=== PATIENT | male | born 1955 | race Caucasian/White ===

== ENCOUNTER 2017-01-21 13:26 | Inpatient (IN) | payer OTHER ==
[2017-01-21] MEDS ORDERED: NS 1,000 ML IV ONE (15:19)
--- NOTE | 2017-01-21 15:21 | EDPHY ---
H & P Time Seen by Provider: 01/21/17 15:07 HPI/ROS: CHIEF COMPLAINT: Diarrhea and weight loss HISTORY OF PRESENT ILLNESS: 61-year-old man has a history of ulcerative colitis presents with diarrhea for 6 days. No nausea vomiting or fever. He describes getting bad stomach cramps and then having diarrhea which completely relieved his abdominal pain this is happening about 20 times a day. He went to urgent care this past Tuesday morning with no definitive diagnosis. The patient did have a negative colonoscopy in November but he has had significant weight loss including 50 lb in the last 6 months, and 10 lb in the last week. No recent travel and no antibiotics. Stool has been a little bit bloody. Not associated with vomiting. REVIEW OF SYSTEMS: Eye: no change in vision ENT: no sore throat Cardiac: no chest pain or syncope Pulmonary: no cough or SOB Abdomen: HPI Musculoskeletal: no back pain Skin: no rash Neuro: no headache Constitutional: no fever : no urinary symptoms A comprehensive 10 point review of systems is otherwise negative aside from elements mentioned in the history of present illness. PAST MEDICAL HISTORY: Includes ulcerative colitis, type 2 diabetes, hyperlipidemia, prostatic hypertrophy, hemorrhoids, hand surgery, hemorrhoidectomy. Social history: No alcohol, former smoker General Appearance: Alert and conversant, cooperative. Eyes: No scleral icterus. ENT, Mouth: Dry mucous membranes Respiratory: Normal respiratory effort, breath sounds equal, lungs are clear to auscultation. Cardiovascular: Regular rate and rhythm. Gastrointestinal: Abdomen is soft and non tender. No rebound or guarding and bowel sounds are present. No masses palpated Neurological: Alert and oriented x3. Normally conversant. Face symmetric, normal movement and sensation in all extremities. Skin: Warm and dry, no rashes. Musculoskeletal: No peripheral edema and no joint swelling. Psychiatric: Not agitated. Emergency Department course/MDM: Patient presents clinically dehydrated with worsening ulcerative colitis and diarrhea with outpatient treatment. Notes from his primary care physician Dr. Forbes are reviewed which include recommendation for admission and gastroenterology consultation, consideration for steroids. Clostridium difficile came back positive hospitalist is aware and will start treatment. Seen by Gastroenterology in the emergency department for evaluation. IV normal saline for volume depletion. Smoking Status: Never smoked Constitutional: Initial Vital Signs Temperature (C) 36.8 C 01/21/17 13:44 Heart Rate 80 01/21/17 13:44 Respiratory Rate 18 01/21/17 13:44 Blood Pressure 151/74 H 01/21/17 13:44 O2 Sat (%) 96 01/21/17 13:44 O2 Delivery Mode Room Air Allergies/Adverse Reactions: No Known Allergies Allergy (Unverified 01/21/17 13:42) Home Medications: Medication Instructions Recorded Aspirin [Aspirin 81mg (*)] 81 mg PO DAILY 01/21/17 Balsalazide Disodium [Colazal (*)] 2,250 mg PO TID 01/21/17 Canagliflozin/Metformin HCl 1 each PO BIDMEAL 01/21/17 [Invokamet 150-1,000 mg Tablet] Colesevelam HCl [Welchol (*)] 1,250 mg PO BID@,01/21/17 L.acidoph,Paracasei, B.lactis 1 each PO DAILY 01/21/17 [Probiotic] Mesalamine [Canasa Suppository (*)] 1,000 mg IA DAILY PRN 01/21/17 Multivitamins [Multivitamin (*)] 1 each PO DAILY 01/21/17 Simvastatin 40 mg PO HS 01/21/17 Medical Decision Making Differential Diagnosis: Differential considered including but not limited to infectious colitis, ischemic colitis, infectious diarrhea, ulcerative colitis. Does have dehydration. Consult/Admit Bed Type: [place] [id number], [place] [id number] - Data Points Laboratory Results: Laboratory Results 01/21/17 15:10 01/21/17 15:10 01/21/17 01/21/17 15:10 15:10 WBC 9.29 10^3/uL 10^3/uL (3.80-9.50) RBC 5.01 10^6/uL 10^6/uL (4.40-6.38) Hgb 15.7 g/dL g/dL (13.7-17.5) Hct 45.8 % % (40.0-51.0) MCV 91.4 fL fL (81.5-99.8) MCH 31.3 pg pg (27.9-34.1) MCHC 34.3 g/dL g/dL (32.4-36.7) RDW 12.4 % % (11.5-15.2) Plt Count 281 10^3/uL 10^3/uL (150-400) MPV 8.8 fL fL (8.7-11.7) Neut % (Auto) 72.1 % % (39.3-74.2) Lymph % (Auto) 13.8 % L % (15.0-45.0) Dickson % (Auto) 10.1 % % (4.5-13.0) Eos % (Auto) 3.1 % % (0.6-7.6) Baso % (Auto) 0.5 % % (0.3-1.7) Nucleat RBC Rel Count 0.0 % % (0.0-0.2) Absolute Neuts (auto) 6.69 10^3/uL H 10^3/uL (1.70-6.50) Absolute Lymphs (auto) 1.28 10^3/uL 10^3/uL (1.00-3.00) Absolute Monos (auto) 0.94 10^3/uL H 10^3/uL (0.30-0.80) Absolute Eos (auto) 0.29 10^3/uL 10^3/uL (0.03-0.40) Absolute Basos (auto) 0.05 10^3/uL 10^3/uL (0.02-0.10) Absolute Nucleated RBC 0.00 10^3/uL 10^3/uL (0-0.01) Immature Gran % 0.4 % % (0.0-1.1) Immature Gran # 0.04 10^3/uL 10^3/uL (0.00-0.10) Sodium 140 mEq/L mEq/L (134-144) Potassium 3.7 mEq/L mEq/L (3.5-5.2) Chloride 107 mEq/L mEq/L (97-110) Carbon Dioxide 24 mEq/l mEq/l (22-31) Anion Gap 9 mEq/L mEq/L (8-16) BUN 11 mg/dL mg/dL (7-23) Creatinine 0.8 mg/dL mg/dL (0.7-1.3) Estimated GFR > 60 Glucose 96 mg/dL mg/dL (70-100) Calcium 8.8 mg/dL mg/dL (8.5-10.4) Total Bilirubin 0.6 mg/dL mg/dL (0.1-1.4) Conjugated Bilirubin 0.3 mg/dL mg/dL (0.0-0.5) Unconjugated Bilirubin 0.3 mg/dL mg/dL (0.0-1.1) AST 27 IU/L IU/L (17-59) ALT 30 IU/L IU/L (21-72) Alkaline Phosphatase 50 IU/L IU/L (38-126) Total Protein 6.0 g/dL L g/dL (6.3-8.2) Albumin 3.6 g/dL g/dL (3.5-5.0) Lipase 66.0 IU/L IU/L (23-300) Microbiology Results: MICROBIOLOGY 01/21/17 15:30 Stool Gastrointestinal Tract Panel (PCR) - Final Clostridium Difficile Detected Medications Given: Discontinued Medications Sodium Chloride (Ns) 1,000 mls @ 0 mls/hr IV EDNOW ONE; Wide Open PRN Reason: Protocol Stop: 01/21/17 15:20 Last Admin: 01/21/17 15:21 Dose: 1,000 mls Departure - Departure Disposition: [facility] Inpatient Acute Clinical Impression: Dehydration Diarrhea Qualifiers: Diarrhea type: unspecified type Qualified Code(s): R19.7 - Diarrhea, unspecified Condition: Good
[2017-01-21 15:24] LABS: % IMMATURE GRANULYOCYTES 0.4 % (0.0-1.1); ABSOLUTE IMMATURE GRANULOCYTES 0.04 10^3/uL (0.00-0.10); ADD DIFF? NO; ADD MORPH? NO; ADD SCAN? NO; ATYPICAL LYMPHOCYTE FLAG 10 (0-99); FRAGMENT RBC FLAG 0 (0-99); HEMATOCRIT 45.8 % (40.0-51.0); HEMOGLOBIN 15.7 g/dL (13.7-17.5); LEFT SHIFT FLG 0 (0-99); LIPEMIA HEMOLYSIS FLAG 90 (0-99); MEAN CELL HEMOGLOBIN 31.3 pg (27.9-34.1); MEAN CELL HEMOGLOBIN CONCENTR. 34.3 g/dL (32.4-36.7); MEAN CELL VOLUME 91.4 fL (81.5-99.8); MEAN PLATELET VOLUME 8.8 fL (8.7-11.7); PLATELET CLUMPS FLAG 0 (0-99); PLATELET COUNT 281 10^3/uL (150-400); RED BLOOD CELL COUNT 5.01 10^6/uL (4.40-6.38); RED CELL DISTRIBUTION WIDTH 12.4 % (11.5-15.2)
[2017-01-21 15:36] LABS: ALANINE AMINOTRANSFERASE 30 IU/L (21-72); ALBUMIN 3.6 g/dL (3.5-5.0); ALKALINE PHOSPHATASE 50 IU/L (38-126); ANION GAP 9 mEq/L (8-16); ASPARTATE AMINOTRANSFERASE 27 IU/L (17-59); BILIRUBIN,TOTAL 0.6 mg/dL (0.1-1.4); BILIRUBIN-CONJUGATED 0.3 mg/dL (0.0-0.5); BILIRUBIN-UNCONJUGATED 0.3 mg/dL (0.0-1.1); CALCIUM 8.8 mg/dL (8.5-10.4); CARBON DIOXIDE 24 mEq/l (22-31); CHLORIDE 107 mEq/L (97-110); CREATININE 0.8 mg/dL (0.7-1.3); GLOMERULAR FILTRATION RATE > 60; GLUCOSE 96 mg/dL (70-100); POTASSIUM 3.7 mEq/L (3.5-5.2); SODIUM 140 mEq/L (134-144)
[2017-01-21] MEDS ORDERED: ONDANSETRON DISINTEGRATING 4 MG TAB PO PRN (16:56)
[2017-01-21] MEDS ORDERED: HYDROmorphONE/DILAUDID 1 MG/ML SYR IVP PRN (16:56)
[2017-01-21] MEDS ORDERED: PROMETHAZINE HCL 25 MG/ML INJ IVP PRN (16:56)
[2017-01-21] MEDS ORDERED: ONDANSETRON 4 MG/2 ML VIAL IVP PRN (16:56)
[2017-01-21] MEDS ORDERED: oxyCODONE IR 5 MG TAB PO PRN (16:56)
[2017-01-21] MEDS ORDERED: LORazepam 0.5 MG TAB PO PRN (16:56)
[2017-01-21] MEDS ORDERED: ZOLPIDEM TARTRATE 5 MG TAB PO PRN (16:56)
[2017-01-21] MEDS ORDERED: ACETAMINOPHEN 325 MG TAB PO PRN (16:56)
[2017-01-21] MEDS ORDERED: MESALAMINE 1,000 MG SUPP PR PRN (16:59)
[2017-01-21] MEDS ORDERED: D50W 25 GM/50 ML SYR IVP PRN (17:00)
--- NOTE | 2017-01-21 17:14 | GCON ---
[f rep st] CONSULTATION DATE OF CONSULTATION: 01/21/2017 REQUESTING PROVIDER: Devi Donis MD REASON FOR CONSULTATION: Diarrhea and weight loss. Thank you very kindly for asking me to evaluate this patient in consultation for a chief complaint o f diarrhea. HISTORY OF PRESENTING ILLNESS: The patient is a pleasant 61-year-old gentleman with underlying ulce rative colitis that has been previously treated by Dr. Stas Ho. He has been on Colazal 3 ca psules 3 times daily for maintenance of his disease, and has been in good remission. He has been ex periencing a significant amount of unexplained weight loss for the last several months. As part of this, he had a repeat colonoscopy in November performed by Dr. Ho that he says to me was unremarkabl e. I have not seen that formal report. Six days ago, he began to develop uncontrollable urgent laura rrhea with hematochezia. This seems to begin with periumbilical abdominal pain and cramping, follow ed by profuse sweating, and then multiple frequent small to moderate volume, loose, explosive bowel movements with blood. He says that the abdominal discomfort and urgency associated with the diarrhe a is not typical for his colitis. He denies any recent antibiotic use, foreign travel or sick conta cts. His reports eating the same type of diet, and she has not been ill. The patient has also undergone a CT scan of the chest, abdomen and pelvis, it sounds like up through [place], as an evaluation for weight loss that he says he was told was nondiagnostic but again, I have not seen this imaging. He denies any fever. He is having nocturnal diarrhea. He denies any r reny or joint pain. He has not initiated any new medications. I am asked to assist with further mona luation and management of his abdominal pain, weight loss, diarrhea, and ulcerative colitis. PAST MEDICAL HISTORY: 1. Type 2 diabetes. 2. Hyperlipidemia. 3. Granados ulcerative colitis. PAST SURGICAL HISTORY: None. MEDICATIONS: On admission include Invokana for diabetes, Welchol and Colazal. ALLERGIES: None known. SOCIAL HISTORY: The patient is . He lives in [place]. He does work for the [employer] (formerly [employer] in [employer]. He has a remote 20 pack-year tobacco history, nothing recent. No alcoholism, no substance abuse. FAMILY HISTORY: Significant for colon cancer in a cousin. There is no history of inflammatory duane l disease or celiac illness. REVIEW OF SYSTEMS: CONSTITUTIONAL: Diaphoresis, weight loss. He says his appetite is good. HEENT : Denies headache, visual disturbances, sore throat, tongue pain, odynophagia or difficulty swallow ing. GI: Denies nausea, vomiting, chest pain, heartburn or dysphagia. Otherwise, per the HPI. RH EUMATOLOGIC: No joint pain or swelling. DERMATOLOGIC: No jaundice, rash or lesion. HEMATOLOGIC: No bruising or epistaxis. GENITOURINARY: No flank pain, hematuria or dysuria. PSYCHIATRIC: Sourav es depression, insomnia, anxiety or palpitations. NEUROLOGIC: No focal motor weakness or paresthes ias. No falls or seizure. PHYSICAL EXAM: VITAL SIGNS: Blood pressure 151/74, heart rate is 80, respirations are 18, oxygenat ion is 96% on room air. Temperature 36.8. GENERAL: Thin male in no acute distress. BMI is 24, wi th a body weight of 77 kg. HEENT: Normocephalic, atraumatic. Oropharynx clear. No thrush, no ora l lesion. NECK: Supple. No jugular venous distention or carotid bruit. No cervical or supraclavi cular adenopathy. PULMONARY: Clear to auscultation bilaterally. CARDIOVASCULAR: Regular rate and rhythm without murmur, rub, or gallop. Normal PMI. GI: Abdomen is soft and nondistended. Normal bowel sounds. No tenderness, rebound, guarding, ascites, organomegaly or bruit. MUSCULOSKELETAL: Normal gait and station. No cyanosis, no clubbing. No joint deformity. No palmar erythema. DERM ATOLOGIC: Warm and dry without jaundice, rash or lesion. Capillary refill is normal. NEUROLOGIC: Alert to person, place, and time. Normal speech and affect. Appropriate mood. Motor exam is nonf ocal and symmetric with good strength. DATABASE: Includes white blood count 9.2, hematocrit 45.8, platelets are 281. Sodium 140, potassiu m 3.7, chloride 107, bicarbonate 24, BUN 11, creatinine 0.8, glucose 96, AST 27, ALT 30, total bilir ubin 0.6, alkaline phosphatase 50, lipase 66. Albumin 3.6, total protein 6.0. IMPRESSION: 1. Diarrhea. 2. Abdominal pain, predominantly periumbilical and lower pelvic. 3. Weight loss of close to 25 pounds in the last several months that has been unexplained. 4. Hematochezia. RECOMMENDATIONS: 1. Obtain the results of his CT scan of his chest, abdomen and pelvis, which sounds like they were performed through the [facility], or possibly [facility]. 2. Obtain the results of his last colonoscopy with biopsies from Dr. Ho's office. 3. Stool for culture and C difficile. 4. Upper endoscopy to evaluate his weight loss and diarrhea, with the plan to also obtain small bow el biopsies. 5. Flexible sigmoidoscopy to assess the severity and extent of his colitis with the plan to also ob tain random biopsies. 6. IV Solu-Medrol 30 mg IV q.6 for treatment of the presumed diagnosis of an ulcerative colitis fla re. 7. I would not continue Invokana as this has often been associated with GI side effects, weight los s, diarrhea and pain. 8. In the same regard, I would not continue WelChol, given his substantial weight loss. 9. He will not need Colazal in the short term, given the use of Solu-Medrol to treat his colitis. 10. Further recommendations to follow his endoscopic evaluation. He may have a normal diet today w ith n.p.o. after midnight. /[id number]/MODL
[2017-01-21] MEDS: INSULIN LISPRO 100 UNIT/ML SC SCH (18:40)
[2017-01-21] MEDS: NS 1,000 ML IV SCH (19:03)
--- NOTE | 2017-01-21 20:56 | GHP ---
[f rep st] HISTORY AND PHYSICAL DATE OF ADMISSION: 01/21/2017 CHIEF COMPLAINT: Diarrhea and weight loss. HISTORY: This is a 61-year-old man who has a past medical history of ulcerative colitis followed pr eviously by Dr. Ho as well as a history of type 2 diabetes. The patient comes to the hospital c omplaining of 6 days of nonstop diarrhea. He notes essentially everything he eats comes out fairly immediately. He says he has had about 20 bowel movements per day. He notes that bowel movements dave ve been yellow in appearance, explosive, and floating in the toilet. He has also noticed some blood in the stool. He notes he has never had a similar bout like this in the past, and it is not typica l for his usual bouts of UC flare. He also has had unexplained weight loss for about the last 6 mon ths. He states he has lost more than 50 pounds. He did have a CT scan of his chest about 6 months ago to look for an occult malignancy given that he has a long smoking history, but this was unremark able as far as he knows. He did have a recent colonoscopy by Dr. Ho which did not show any colo n cancer. He has also had some night sweats which he describes as occasionally waking up soaking th e bed. He notes that prior to 6 days ago he was not having issues with diarrhea, but it is his usua l pattern to have about 4 small bowel movements per day. He has had no new medications. He notes h is diabetes has been under better control than usual recently. PAST MEDICAL HISTORY: 1. Ulcerative colitis. 2. Type 2 diabetes. 3. Hyperlipidemia. PAST SURGICAL HISTORY: None. SOCIAL HISTORY: Patient is . He has a 20 pack-year smoking history. He denies heavy alcoho l use. He works in construction. FAMILY HISTORY: He notes 2 cousins with colon cancer. Otherwise, no cancers or GI issues in the [facility]. MEDICATIONS: 1. Colazal. 2. Aspirin. 3. Mesalamine. 4. Invokamet. 5. Multivitamin. 6. Simvastatin. 7. Probiotic. 8. Welchol. ALLERGIES: No known drug allergies. PHYSICAL EXAMINATION: VITAL SIGNS: BP 117/67, heart rate 71, respiratory rate 16, O2 sats 97% on r oom air, temperature is 36.5. GENERAL APPEARANCE: Well-developed/well-nourished man. He is awake and alert. He is in no acute distress. EYES: Anicteric. HENT: Oropharynx clear. CARDIOVASCULAR : Regular rate and rhythm, no MRG. PULMONARY: CTA bilaterally. Normal work of breathing. ABDOME N: Soft, nontender, nondistended. EXTREMITIES: No clubbing, cyanosis, or edema. SKIN: Warm, dry , well perfused. NEURO/PSYCHOLOGICAL: Oriented, appropriate, and pleasant. CLINICAL DATA: CBC is unremarkable. Chemistry and LFTs are essentially unremarkable. Most recent hemoglobin A1c was 8.8. C difficile toxin was found on initial GI report. ASSESSMENT AND PLAN: This is a 61-year-old man past medical history of ulcerative colitis presentin with 6 days of significant diarrhea and 6 months of significant weight loss. 1. Diarrhea with a history of ulcerative colitis but also Clostridium difficile screen coming back positive on his GI PCR panel. GI has been consulted and plans to proceed with upper endoscopy and f lexible sigmoidoscopy in the morning. The remainder of the microbiology on his GI pathogen panel is still pending. 2. Clostridium difficile colitis. Will start oral vancomycin. Otherwise, workup is as per above. 3. Weight loss. Patient has had a 50-pound weight loss over 6 months, and both he and his are adamant that he has been eating very well, not trying to lose weight. It is associated with night sweats. Does sound like he had imaging of his chest about 6 months ago, but given ongoing and worse abdirahman issues, I am going to repeat a CT chest, abdomen, pelvis. Will also get a TSH and LDH level. 4. Ulcerative colitis. Pending his flexible sigmoidoscopy to be done in the morning, I will contin ue IV steroids for the time being as his diarrhea may have both components of Clostridium difficile and ulcerative colitis flare. If there is no evidence of ulcerative colitis flare on his flexible s igmoidoscopy, the steroids likely can be discontinued. Will continue with usual home ulcerative col itis medications. 5. Diabetes. We will hold his Invokamet per Dr. Ace's request as it can cause some GI symptoms. Will continue sliding scale insulin for time being. 6. Hyperlipidemia. Will hold the Welchol again in case this could be contributing to his acute pre sentation. Will continue simvastatin. 7. Disposition: Inpatient status. Except he will need greater than 48 hour stay for evaluation an d management of above. Patient is new to my care. Old records reviewed. Summary is as per HPI and past medical history. Care plan reviewed with Dr. Ace including plans for Solu-Medrol and [facility] Further history obtained from patient's present at bedside. /[id number]/MODL
[2017-01-21] MEDS: VANCOMYCIN 125 MG/2.5 ML UDL PO SCH (20:58)
[2017-01-21] MEDS: ATORVASTATIN CALCIUM 20 MG TAB PO SCH (20:58)
[2017-01-21] MEDS ORDERED: IOPAMIDOL (ISOVUE-300) 100 ML BTL ONE (21:37)
[2017-01-21] MEDS: methylPREDNISolone SOD SUCC 40 MG/ML VIAL IVP SCH (23:38)
[2017-01-21] MEDS: BALSALAZIDE DISODIUM 750 MG CAP PO SCH (23:38)
[2017-01-22 05:14] LABS: % IMMATURE GRANULYOCYTES 0.6 % (0.0-1.1); ABSOLUTE IMMATURE GRANULOCYTES 0.06 10^3/uL (0.00-0.10); ADD DIFF? NO; ADD MORPH? NO; ADD SCAN? NO; ATYPICAL LYMPHOCYTE FLAG 0 (0-99); FRAGMENT RBC FLAG 0 (0-99); HEMATOCRIT 43.9 % (40.0-51.0); HEMOGLOBIN 14.8 g/dL (13.7-17.5); LEFT SHIFT FLG 30 (0-99); LIPEMIA HEMOLYSIS FLAG 80 (0-99); MEAN CELL HEMOGLOBIN 31.1 pg (27.9-34.1); MEAN CELL HEMOGLOBIN CONCENTR. 33.7 g/dL (32.4-36.7); MEAN CELL VOLUME 92.2 fL (81.5-99.8); MEAN PLATELET VOLUME 8.8 fL (8.7-11.7); PLATELET CLUMPS FLAG 0 (0-99); PLATELET COUNT 275 10^3/uL (150-400); RED BLOOD CELL COUNT 4.76 10^6/uL (4.40-6.38); RED CELL DISTRIBUTION WIDTH 12.5 % (11.5-15.2)
[2017-01-22] MEDS: VANCOMYCIN 125 MG/2.5 ML UDL PO SCH ×4 (05:23→19:59)
[2017-01-22] MEDS: methylPREDNISolone SOD SUCC 40 MG/ML VIAL IVP SCH ×3 (05:23→23:22)
[2017-01-22 05:25] LABS: ANION GAP 11 mEq/L (8-16); CALCIUM 8.3 mg/dL (8.5-10.4); CARBON DIOXIDE 20 mEq/l (22-31); CHLORIDE 109 mEq/L (97-110); CREATININE 0.7 mg/dL (0.7-1.3); GLOMERULAR FILTRATION RATE > 60; GLUCOSE 171 mg/dL (70-100); LACTATE DEHYDROGENASE 347 IU/L (313-618); SODIUM 140 mEq/L (134-144)
[2017-01-22] MEDS: NS 1,000 ML IV SCH (05:27)
[2017-01-22] MEDS: INSULIN LISPRO 100 UNIT/ML SC SCH ×3 (08:31→18:51)
[2017-01-22] MEDS ORDERED: MULTIVITAMINS 1 EACH TAB PO SCH (09:00)
[2017-01-22] MEDS: L.Acidoph,Paracasei, B.Lactis [Probiotic] 1 EACH PO SCH (10:09)
[2017-01-22] MEDS: BALSALAZIDE DISODIUM 750 MG CAP PO SCH ×3 (10:10→23:21)
--- NOTE | 2017-01-22 10:38 | PDANEPAE ---
ANE History of Present Illness egd, flex sig ANE Past Medical History - Cardiovascular History Hx Hypertension: No Hx Arrhythmias: No Hx Chest Pain: No Hx Coronary Artery / Peripheral Vascular Disease: No Hx CHF / Valvular Disease: No Hx Palpitations: No Cardiovascular History Comment: on statin - Pulmonary History Hx COPD: No Hx Asthma/Reactive Airway Disease: No Hx Recent Upper Respiratory Infection: No Hx Oxygen in Use at Home: No Hx Sleep Apnea: No Sleep Apnea Screening Result - Last Documented: Negative - Neurologic History Hx Cerebrovascular Accident: No Hx Seizures: No Hx Dementia: No - Endocrine History Hx Diabetes: Yes - Renal History Hx Renal Disorders: No - Liver History Hx Hepatic Disorders: No ANE Review of Systems - Exercise capacity METS (RN): 4 METS ANE Patient History - Allergies Allergies/Adverse Reactions: No Known Allergies Allergy (Unverified 01/21/17 13:42) - Home Medications Home Medications: Aspirin [Aspirin 81mg (*)] 81 mg PO DAILY 01/21/17 [Last Taken 01/21/17] Balsalazide Disodium [Colazal (*)] 2,250 mg PO TID 01/21/17 [Last Taken 01/21/17 ] Canagliflozin/Metformin HCl [Invokamet 150-1,000 mg Tablet] 1 each PO BIDMEAL [Last Taken 01/21/17] Colesevelam HCl [Welchol (*)] 1,250 mg PO BID@12,18 01/21/17 [Last Taken ] L.acidoph,Paracasei, B.lactis [Probiotic] 1 each PO DAILY 01/21/17 [Last Taken Unknown] Mesalamine [Canasa Suppository (*)] 1,000 mg SC DAILY PRN 01/21/17 [Last Taken 01/13/17] Multivitamins [Multivitamin (*)] 1 each PO DAILY 01/21/17 [Last Taken 01/20/17] Simvastatin 40 mg PO HS 01/21/17 [Last Taken 01/20/17] - NPO status NPO Since - Liquids (Date): 01/22/17 NPO Since - Liquids (Time): 00:00 NPO Since - Solids (Date): 01/22/17 NPO Since - Solids (Time): 00:00 - Anes Hx Anes Hx: no prior problems - Smoking Hx Smoking Status: Never smoked ANE Labs/Vital Signs - Labs Result Diagrams: 01/22/17 04:41 01/22/17 04:41 - Vital Signs Blood Pressure: 101/62 Heart Rate: 69 Respiratory Rate: 16 O2 Sat (%): 91 Height: 177.8 cm Weight: 73 kg ANE Physical Exam - Airway Mallampati Score: Class 2 Mouth exam: normal dental/mouth exam - Pulmonary Pulmonary: no respiratory distress - Cardiovascular Cardiovascular: regular rate and rhythym - ASA Status ASA Status: II ANE Anesthesia Plan Anesthesia Plan: GA with mask
[2017-01-22] MEDS ORDERED: LIDOCAINE 2% 5 ML SDV ONE (10:40)
[2017-01-22] MEDS ORDERED: PROPOFOL/EMULSION 500 MG/50 ML BOTTLE IV ONE (10:40)
[2017-01-22] MEDS ORDERED: MIDAZOLAM 2 MG/2 ML VIAL ONE (10:40)
[2017-01-22] MEDS ORDERED: LR 1,000 ML IV ONE (10:52)
--- NOTE | 2017-01-22 11:22 | POSTANESTH ---
Post Anesthetic Evaluation Cardiovascular Status: Normal, Stable Respiratory Status: Normal, Stable Level of Consciousness/Mental Status: Can Participate in Eval Pain Control: Adequate, Prn Tx Ordered Nausea/Vomiting Control: Adequate, Prn Tx Ordered Complications Possibly Related to Anesthesia: None Noted
--- NOTE | 2017-01-22 13:00 | POSTOPPROG ---
Post Op Note Date of Operation: 01/22/17 Surgeon: Reno Reynoso Anesthesia: IV Sedation Pre-op Diagnosis: colitis, diarrhea, weight loss. Post-op Diagnosis: colitis, gastritis Indication: weight loss, diarrhea Hx UC Procedure: EGD with bx, flex sig with bx Findings: + colitis with pseudomemebranes, gastritis Inf/Abcess present in the surg proc area at time of surgery?: No EBL: Minimal Specimen(s): rectal, gastric , duodenum
--- NOTE | 2017-01-22 15:39 | HOSPPROG ---
Hospitalist Progress Note Assessment/Plan: * C diff colitis * continue vancomycin * ulcer of colitis with possible flare * on IV Solu-Medrol * colonoscopy * weight loss * uncertain etiology * could be a new diabetic medication - will discontinue * type 2 diabetes * sees telecommunication equipment repairer outpatient * I wonder if there may be a type 1 component * will check hemoglobin A1c Subjective: Feels about the same Objective: Vital Signs Temp Pulse Resp BP Pulse Ox 37.1 C 66 18 94/52 L 97 01/22/17 13:33 01/22/17 13:33 01/22/17 13:33 01/22/17 13:33 01/22/17 13:33 Laboratory Results 01/22/17 04:41 01/22/17 04:41 01/21/17 01/22/17 01/23/17 05:59 05:59 05:59 Intake Total 758 935 Output Total 0 Balance 758 935 - Physical Exam Constitutional: no apparent distress, appears nourished, not in pain Eyes: anicteric sclera, EOMI Ears, Nose, Mouth, Throat: moist mucous membranes, hearing normal Cardiovascular: regular rate and rhythym, no murmur, rub, or gallop Respiratory: no respiratory distress, no rales or rhonchi, clear to auscultation Gastrointestinal: normoactive bowel sounds, soft, non-tender abdomen, no palpable masses Skin: warm Neurologic: AAOx3 Psychiatric: interacting appropriately, not anxious, not encephalopathic, thought process linear ICD10 Worksheet Patient Problems: Problems Problem Status Onset Dehydration Acute Diarrhea Acute
[2017-01-22] MEDS ORDERED: BALSALAZIDE DISODIUM 750 MG CAP PO SCH (16:30)
[2017-01-22] MEDS: ATORVASTATIN CALCIUM 20 MG TAB PO SCH (19:59)
[2017-01-22 22:01] LABS: GLUCOSE 342 mg/dL (70-100)
--- NOTE | 2017-01-22 22:44 | GPN ---
[f rep st] PROCEDURE NOTE DATE OF PROCEDURE: 01/22/2017 PROCEDURE: Esophagogastroduodenoscopy with biopsy. INDICATION: The patient is a 61-year-old male with a history of ulcerative colitis who presents for evaluation of weight loss as well as periumbilical abdominal pain. CONSENT: Risks, benefits, and alternatives of the procedure were discussed in great detail with the patient. Risks of infection, bleeding, perforation, and sedation were discussed. All questions were answered and informed consent was obtained. MEDICATIONS: Propofol. Please see anesthesiology records for details. ESTIMATED BLOOD LOSS: Insignificant, ESOPHAGOGASTRODUODENOSCOPY EXAMINATION: The Olympus upper endoscope was introduced into the mouth and advanced to the esophagus. The proximal, mid, and distal esophagus were normal in appearance. The stomach was entered and closely examined, including retroflexed views of the angularis, cardia and fundus. The patient was noted have a small hiatal hernia. The mucosa in the antrum and body of stomach was erythematous in a patchy distribution and biopsies were taken. The duodenal bulb and the second portion of the duodenum were normal in appearance. Biopsies were taken to rule out celiac sprue. IMPRESSION: 1. Small hiatal hernia. 2. Gastritis, status post biopsy. 3. Biopsy taken to rule out celiac sprue. 4. No obvious cause of symptoms visualized. RECOMMENDATIONS: 1. Follow up on biopsy results. 2. Proceed with colonoscopic evaluation. /[id number]/MODL MTDD
--- NOTE | 2017-01-22 23:05 | GPN ---
[f rep st] PROCEDURE NOTE DATE OF PROCEDURE: 01/22/2017 PROCEDURE: Flexible sigmoidoscopy with biopsy. INDICATION: The patient is a 61-year-old male with history of ulcerative colitis, C difficile colitis who presents for evaluation of increasing diarrhea as well as evaluation of the severity of his ulcerative colitis. CONSENT: Risks, benefits, and alternatives of the procedure were discussed in great detail with the patient. Risks of infection, bleeding, perforation, and sedation were discussed. All questions answered and informed consent was obtained. MEDICATIONS: Propofol. Please see Anesthesiology record for details. ESTIMATED BLOOD LOSS: Insignificant. FLEXIBLE SIGMOIDOSCOPY EXAMINATION: A rectal exam was performed and no palpable mass was felt. The scope was inserted into the rectum and advanced to the distal sigmoid colon. The colonic mucosa was examined and multiple pseudomembranes were seen. There was loss of vascular pattern as well as nodularity noted. Biopsies were taken. IMPRESSION: Colitis- I suspect a major component of his symptoms is his Clostridium difficile colitis due to the pseudomembranes seen. At this time, would recommend to continue vancomycin and will monitor clinical situation. RECOMMENDATION: 1. Follow up on biopsy results. 2. Continue vancomycin. 3. Okay to restart diet. /[id number]/MODL MTDD
[2017-01-22] MEDS ORDERED: INSULIN LISPRO 100 UNIT/ML SC ONE (23:30)
[2017-01-23 05:10] LABS: % IMMATURE GRANULYOCYTES 0.5 % (0.0-1.1); ABSOLUTE IMMATURE GRANULOCYTES 0.06 10^3/uL (0.00-0.10); ADD DIFF? NO; ADD MORPH? NO; ADD SCAN? NO; ATYPICAL LYMPHOCYTE FLAG 0 (0-99); FRAGMENT RBC FLAG 0 (0-99); HEMATOCRIT 42.6 % (40.0-51.0); HEMOGLOBIN 14.4 g/dL (13.7-17.5); LEFT SHIFT FLG 10 (0-99); LIPEMIA HEMOLYSIS FLAG 90 (0-99); MEAN CELL HEMOGLOBIN 30.8 pg (27.9-34.1); MEAN CELL HEMOGLOBIN CONCENTR. 33.8 g/dL (32.4-36.7); MEAN CELL VOLUME 91.2 fL (81.5-99.8); PLATELET CLUMPS FLAG 0 (0-99); PLATELET COUNT 299 10^3/uL (150-400); RED BLOOD CELL COUNT 4.67 10^6/uL (4.40-6.38); RED CELL DISTRIBUTION WIDTH 12.5 % (11.5-15.2)
[2017-01-23 05:31] LABS: ANION GAP 10 mEq/L (8-16); CALCIUM 8.5 mg/dL (8.5-10.4); CARBON DIOXIDE 20 mEq/l (22-31); CHLORIDE 108 mEq/L (97-110); CREATININE 0.7 mg/dL (0.7-1.3); GLOMERULAR FILTRATION RATE > 60; GLUCOSE 218 mg/dL (70-100); POTASSIUM 4.5 mEq/L (3.5-5.2); SODIUM 138 mEq/L (134-144)
[2017-01-23] MEDS: methylPREDNISolone SOD SUCC 40 MG/ML VIAL IVP SCH (06:08)
[2017-01-23] MEDS: VANCOMYCIN 125 MG/2.5 ML UDL PO SCH ×4 (06:08→21:05)
[2017-01-23] MEDS: ASPIRIN EC 81 MG TAB PO SCH (08:26)
[2017-01-23] MEDS: BALSALAZIDE DISODIUM 750 MG CAP PO SCH ×3 (08:26→21:05)
[2017-01-23] MEDS: MULTIVITAMINS 1 EACH TAB PO SCH (08:28)
[2017-01-23] MEDS: L.Acidoph,Paracasei, B.Lactis [Probiotic] 1 EACH PO SCH (08:28)
[2017-01-23] MEDS: INSULIN LISPRO 100 UNIT/ML SC SCH ×3 (08:28→18:18)
[2017-01-23] MEDS: predniSONE 20 MG TAB PO SCH (12:56)
[2017-01-23] MEDS: metFORMIN HCL 500 MG TAB PO SCH ×2 (12:56→18:04)
--- NOTE | 2017-01-23 13:16 | SOAPPROG ---
SOAP Progress Note Assessment/Plan: Assessment: Plan: 01/23/17 13:13 A/P 1. Diarrhea- with C. Dif and UC. On Solumedrol and Vankomycin. S/p Flex Sig with pseudomembranes seen. Suspect most of symptoms are secondary to C. Dif. ( rather than flare of UC). Appears to be clinically improving on Vankomycin. As continues to improve, would change to oral prednisone 20mg BID and advance diet. Subjective: cc: Follow up diarrhea Feeling better. BMs decreased 50%. Still had about 5 BMS in last 4-5 hours. Objective: Vital Signs Temp Pulse Resp BP Pulse Ox 36.6 C 76 16 101/59 L 94 01/23/17 09:31 01/23/17 09:31 01/23/17 09:31 01/23/17 09:31 01/23/17 09:31 Laboratory Results 01/23/17 04:40 01/23/17 04:40 01/22/17 01/23/17 01/24/17 05:59 05:59 05:59 Intake Total 758 2535 Output Total 0 Balance 758 2535 Physical Exam - Physical Exam General Appearance: alert, no apparent distress EENT: No scleral icterus (R), No scleral icterus (L) Respiratory: lungs clear, normal breath sounds, No rales, No rhonchi Cardiac/Chest: regular rate, rhythm, No bradycardia, No tachycardia, No diastolic murmur, No systolic murmur Abdomen: non-tender, soft, No distended, No guarding, No mass Skin: normal color Neuro/Psych: normal mood/affect, oriented x 3, No abnormal sign wirer II-XII ICD10 Worksheet Patient Problems: Problems Problem Status Onset Dehydration Acute Diarrhea Acute
[2017-01-23] MEDS: NS 1,000 ML IV SCH ×2 (13:41→21:31)
--- NOTE | 2017-01-23 14:37 | HOSPPROG ---
Hospitalist Progress Note Assessment/Plan: * C diff colitis * continue vancomycin * Colonoscopy confirmed pseudomembranes * ulcer of colitis with possible flare * Switch to low-dose prednisone due to elevated blood sugars Solu-Medrol * Blood sure how much ulcer of colitis is contributing * weight loss * uncertain etiology * could be a new diabetic medication - will discontinue * type 2 diabetes * sees director of video analytics outpatient * Restart metformin * Try to decrease steroids Subjective: Diarrhea is improving Objective: Vital Signs Temp Pulse Resp BP Pulse Ox 36.6 C 76 16 101/59 L 94 01/23/17 09:31 01/23/17 09:31 01/23/17 09:31 01/23/17 09:31 01/23/17 09:31 Laboratory Results 01/23/17 04:40 01/23/17 04:40 01/22/17 01/23/17 01/24/17 05:59 05:59 05:59 Intake Total 758 2535 Output Total 0 Balance 758 2535 - Physical Exam Constitutional: no apparent distress, appears nourished, not in pain Eyes: anicteric sclera, EOMI Cardiovascular: regular rate and rhythym Respiratory: no respiratory distress Gastrointestinal: normoactive bowel sounds, soft, non-tender abdomen, no palpable masses Skin: warm Neurologic: AAOx3 Psychiatric: interacting appropriately, not anxious, not encephalopathic, thought process linear ICD10 Worksheet Patient Problems: Problems Problem Status Onset Dehydration Acute Diarrhea Acute
[2017-01-23] MEDS: VSL#3 1 EACH CAP PO SCH (18:16)
[2017-01-23] MEDS: ATORVASTATIN CALCIUM 20 MG TAB PO SCH (21:05)
[2017-01-24 01:35] LABS: HEMOGLOBIN A1C 8.3 % (4.0-6.0)
[2017-01-24] MEDS: VANCOMYCIN 125 MG/2.5 ML UDL PO SCH ×4 (05:07→20:42)
--- NOTE | 2017-01-24 07:38 | SOAPPROG ---
SOAP Progress Note Assessment/Plan: Assessment: Plan: 01/23/17 13:13 A/P 1. Diarrhea- with C. Dif and UC. On Solumedrol and Vankomycin. S/p Flex Sig with pseudomembranes seen. Suspect most of symptoms are secondary to C. Dif. ( rather than flare of UC). Appears to be clinically improving on Vankomycin. As continues to improve, would change to oral prednisone 20mg BID and advance diet. 01/24/17 07:35 A/P 1. Diarrhea- with UC and C. Dif. On vankomycin and oral steroids. Had increase in symptoms. Monitor and if not improving would consider to place back on IV steroids. Await biopsy results. Subjective: cc: Follow up on diarrhea. Had 10 BMs in last 12 hours. No pain. Objective: Vital Signs Temp Pulse Resp BP Pulse Ox 36.6 C 60 18 96/65 L 96 01/24/17 05:16 01/24/17 05:16 01/24/17 05:16 01/24/17 05:16 01/24/17 05:16 Laboratory Results 01/23/17 04:40 01/23/17 04:40 01/23/17 01/24/17 01/25/17 05:59 05:59 05:59 Intake Total 2535 2351 Output Total 0 Balance 2535 2351 Physical Exam - Physical Exam General Appearance: alert, no apparent distress EENT: No scleral icterus (R), No scleral icterus (L) Respiratory: lungs clear, normal breath sounds Cardiac/Chest: regular rate, rhythm Abdomen: non-tender, soft, No distended, No guarding, No rebound Neuro/Psych: normal mood/affect, oriented x 3, No abnormal water resource consultant II-XII ICD10 Worksheet Patient Problems: Problems Problem Status Onset Dehydration Acute Diarrhea Acute
[2017-01-24] MEDS: VSL#3 1 EACH CAP PO SCH (08:19)
[2017-01-24] MEDS: predniSONE 20 MG TAB PO SCH ×2 (08:19→20:41)
[2017-01-24] MEDS: metFORMIN HCL 500 MG TAB PO SCH ×2 (08:19→18:09)
[2017-01-24] MEDS: ASPIRIN EC 81 MG TAB PO SCH (08:19)
[2017-01-24] MEDS: BALSALAZIDE DISODIUM 750 MG CAP PO SCH ×3 (08:19→20:44)
[2017-01-24] MEDS: MULTIVITAMINS 1 EACH TAB PO SCH (08:19)
[2017-01-24] MEDS: INSULIN LISPRO 100 UNIT/ML SC SCH ×3 (08:19→18:09)
--- NOTE | 2017-01-24 16:16 | HOSPPROG ---
Hospitalist Progress Note Assessment/Plan: * C diff colitis * continue vancomycin - will try higher dose * Colonoscopy confirmed pseudomembranes * ulcer of colitis with possible flare * Increased prednisone to 20 mg twice daily * Blood sure how much ulcer of colitis is contributing * weight loss * uncertain etiology * could be a new diabetic medication - will discontinue * type 2 diabetes * sees element burner outpatient * Restart metformin * Try to decrease steroids Subjective: Had more diarrhea overnight. No abdominal pain Objective: Vital Signs Temp Pulse Resp BP Pulse Ox 36.4 C 76 16 92/52 L 95 01/24/17 15:54 01/24/17 15:54 01/24/17 15:54 01/24/17 15:54 01/24/17 15:54 Laboratory Results 01/23/17 04:40 01/23/17 04:40 01/23/17 01/24/17 01/25/17 05:59 05:59 05:59 Intake Total 2535 2351 Output Total 0 Balance 2535 2351 - Physical Exam Constitutional: no apparent distress, appears nourished, not in pain Eyes: anicteric sclera, EOMI Cardiovascular: regular rate and rhythym Respiratory: no respiratory distress Gastrointestinal: normoactive bowel sounds, soft, non-tender abdomen, no palpable masses Neurologic: AAOx3 Psychiatric: interacting appropriately, not anxious, not encephalopathic, thought process linear ICD10 Worksheet Patient Problems: Problems Problem Status Onset Dehydration Acute Diarrhea Acute
[2017-01-24] MEDS: NS 1,000 ML IV SCH (18:09)
[2017-01-24] MEDS: ATORVASTATIN CALCIUM 20 MG TAB PO SCH (20:41)
[2017-01-25] MEDS: VANCOMYCIN 125 MG/2.5 ML UDL PO SCH ×4 (05:47→21:06)
[2017-01-25] MEDS: NS 1,000 ML IV SCH (05:51)
[2017-01-25] MEDS: BALSALAZIDE DISODIUM 750 MG CAP PO SCH ×3 (08:37→21:06)
[2017-01-25] MEDS: ASPIRIN EC 81 MG TAB PO SCH (08:38)
[2017-01-25] MEDS: VSL#3 1 EACH CAP PO SCH (08:38)
[2017-01-25] MEDS: metFORMIN HCL 500 MG TAB PO SCH ×2 (08:39→18:08)
[2017-01-25] MEDS: predniSONE 20 MG TAB PO SCH ×2 (08:39→21:05)
[2017-01-25] MEDS: MULTIVITAMINS 1 EACH TAB PO SCH (08:39)
[2017-01-25] MEDS: INSULIN LISPRO 100 UNIT/ML SC SCH ×3 (08:40→18:07)
--- NOTE | 2017-01-25 14:15 | SOAPPROG ---
SOAP Progress Note Assessment/Plan: Assessment: 1. C. Diff colitis; symptomically improved on Vancomycin. 2. RAYNE; improved on BID Prrednisone. Plan: 1. Continue oral meds. 2. Will set up F/U as outpatient with one of our [facility] and transition of 5 ASA med. 3. Diabetes care as outpatient with PCP (Tiburcio Forbes). Marcus Sequeira MD 01/25/17 14:11 Subjective: CC: RAYNE/C. Diff colitis. Interval HPI: Patient without abdominal pain. 3 BM's today without blood or urgency. Objective: Vital Signs Temp Pulse Resp BP Pulse Ox 36.7 C 57 L 16 101/82 H 96 01/25/17 08:35 01/25/17 08:35 01/25/17 08:35 01/25/17 08:35 01/25/17 08:35 Laboratory Results 01/23/17 04:40 01/23/17 04:40 01/24/17 01/25/17 01/26/17 05:59 05:59 05:59 Intake Total 2351 2998 Balance 2351 2998 Physical Exam - Physical Exam General Appearance: WD/WN, alert, no apparent distress Respiratory: chest non-tender, lungs clear, normal breath sounds Cardiac/Chest: normal peripheral pulses, regular rate, rhythm Abdomen: normal bowel sounds, non-tender, soft Skin: normal color, warm/dry Neuro/Psych: alert, normal mood/affect, oriented x 3 ICD10 Worksheet Patient Problems: Problems Problem Status Onset Dehydration Acute Diarrhea Acute
--- NOTE | 2017-01-25 18:41 | HOSPPROG ---
Hospitalist Progress Note Assessment/Plan: * C diff colitis * continue vancomycin - will try higher dose * Colonoscopy confirmed pseudomembranes * ulcer of colitis with possible flare * Increased prednisone to 20 mg twice daily * Blood sure how much ulcer of colitis is contributing * weight loss * uncertain etiology * could be a new diabetic medication - will discontinue * type 2 diabetes * sees thermal cutter helper outpatient * Restart metformin * Try to decrease steroids Subjective: diarrhea improving Objective: Vital Signs Temp Pulse Resp BP Pulse Ox 36.5 C 64 15 120/72 94 01/25/17 15:26 01/25/17 15:26 01/25/17 15:26 01/25/17 15:26 01/25/17 15:26 Laboratory Results 01/23/17 04:40 01/23/17 04:40 01/24/17 01/25/17 01/26/17 05:59 05:59 05:59 Intake Total 2351 2998 1200 Balance 2351 2998 1200 - Physical Exam Constitutional: no apparent distress, appears nourished, not in pain Respiratory: no respiratory distress Gastrointestinal: normoactive bowel sounds, soft, non-tender abdomen, no palpable masses Neurologic: AAOx3 Psychiatric: interacting appropriately, not anxious, not encephalopathic, thought process linear ICD10 Worksheet Patient Problems: Problems Problem Status Onset Dehydration Acute Diarrhea Acute
[2017-01-25] MEDS: ATORVASTATIN CALCIUM 20 MG TAB PO SCH (21:05)
[2017-01-26] MEDS: VANCOMYCIN 125 MG/2.5 ML UDL PO SCH ×4 (05:13→20:59)
[2017-01-26] MEDS: metFORMIN HCL 500 MG TAB PO SCH ×2 (08:48→17:43)
[2017-01-26] MEDS: VSL#3 1 EACH CAP PO SCH (08:48)
[2017-01-26] MEDS: BALSALAZIDE DISODIUM 750 MG CAP PO SCH ×3 (08:48→21:00)
[2017-01-26] MEDS: predniSONE 20 MG TAB PO SCH ×2 (08:48→20:58)
[2017-01-26] MEDS: MULTIVITAMINS 1 EACH TAB PO SCH (08:49)
[2017-01-26] MEDS: ASPIRIN EC 81 MG TAB PO SCH (08:49)
[2017-01-26] MEDS: INSULIN LISPRO 100 UNIT/ML SC SCH (08:51)
[2017-01-26] MEDS ORDERED: predniSONE 10 MG TAB PO ONE (09:48)
--- NOTE | 2017-01-26 09:51 | HOSPPROG ---
Hospitalist Progress Note Assessment/Plan: * C diff colitis * continue vancomycin - dose increased a few days * Colonoscopy confirmed pseudomembranes * ulcer of colitis * Biopsy does show that ulcerative colitis is active * Increased prednisone to 30 mg twice daily * weight loss * uncertain etiology * could be a new diabetic medication - will discontinue * type 2 diabetes * sees nutrition specialist outpatient * Restart metformin * Increase sliding scale Subjective: Did well yesterday without much diarrhea but overnight had 7 bowel movements. No abdominal pain Objective: Vital Signs Temp Pulse Resp BP Pulse Ox 36.9 C 58 L 18 114/72 98 01/26/17 08:31 01/26/17 08:31 01/26/17 08:31 01/26/17 08:31 01/26/17 08:31 Laboratory Results 01/23/17 04:40 01/23/17 04:40 01/25/17 01/26/17 01/27/17 05:59 05:59 05:59 Intake Total 2998 1700 Balance 2998 1700 - Physical Exam Constitutional: no apparent distress, appears nourished, not in pain Eyes: anicteric sclera, EOMI Ears, Nose, Mouth, Throat: moist mucous membranes Respiratory: no respiratory distress Neurologic: AAOx3 Psychiatric: interacting appropriately, not anxious, not encephalopathic, thought process linear ICD10 Worksheet Patient Problems: Problems Problem Status Onset Dehydration Acute Diarrhea Acute
--- NOTE | 2017-01-26 09:56 | SOAPPROG ---
SOAP Progress Note Assessment/Plan: Assessment: 1. C. Diff colitis; symptomatically improved on Vancomycin. Path results showed normal gastric and duodenal bx's with colonic bx's c/w combo of RAYNE and C. Diff(endoscopically more inflammation secondary to C. diff). 2. RAYNE; increased BM's and urgency over the night on BID Prednisone. Plan: 1. Continue oral meds, will increase Prednisone to 30 mg PO BID. Will need additional 24 hours or more in the hospital to assess response to meds. 2. Will set up F/U as outpatient with one of our [facility]'s and transition of 5 ASA med. 3. Diabetes care as outpatient with PCP (Tiburcio Forbes). Marcus Sequeira MD 01/26/17 10:00 Subjective: CC: C. diff colitis/RAYNE. Interval HPI: Patient had increased BM's (7) and urgency throughout the night. No blood in stool or abdominal pain. Objective: Vital Signs Temp Pulse Resp BP Pulse Ox 36.9 C 58 L 18 114/72 98 01/26/17 08:31 01/26/17 08:31 01/26/17 08:31 01/26/17 08:31 01/26/17 08:31 Laboratory Results 01/23/17 04:40 01/23/17 04:40 01/25/17 01/26/17 01/27/17 05:59 05:59 05:59 Intake Total 2998 1700 Balance 2998 1700 Physical Exam - Physical Exam General Appearance: WD/WN, alert, no apparent distress Respiratory: lungs clear, normal breath sounds Cardiac/Chest: regular rate, rhythm Abdomen: normal bowel sounds, non-tender, soft Skin: normal color, warm/dry Neuro/Psych: alert, normal mood/affect, oriented x 3 ICD10 Worksheet Patient Problems: Problems Problem Status Onset Dehydration Acute Diarrhea Acute
[2017-01-26] MEDS: INSULIN LISPRO 100 UNIT/1 ML VIAL HIGH SC SCH ×2 (13:06→17:49)
[2017-01-26] MEDS: ATORVASTATIN CALCIUM 20 MG TAB PO SCH (20:59)
[2017-01-27 04:53] LABS: % IMMATURE GRANULYOCYTES 0.7 % (0.0-1.1); ABSOLUTE IMMATURE GRANULOCYTES 0.07 10^3/uL (0.00-0.10); ADD DIFF? NO; ADD MORPH? NO; ADD SCAN? NO; ATYPICAL LYMPHOCYTE FLAG 10 (0-99); FRAGMENT RBC FLAG 0 (0-99); HEMATOCRIT 40.6 % (40.0-51.0); LEFT SHIFT FLG 0 (0-99); LIPEMIA HEMOLYSIS FLAG 90 (0-99); MEAN CELL HEMOGLOBIN 31.1 pg (27.9-34.1); MEAN CELL HEMOGLOBIN CONCENTR. 34.5 g/dL (32.4-36.7); MEAN CELL VOLUME 90.2 fL (81.5-99.8); PLATELET CLUMPS FLAG 10 (0-99); PLATELET COUNT 287 10^3/uL (150-400); RED CELL DISTRIBUTION WIDTH 12.5 % (11.5-15.2)
[2017-01-27 05:08] LABS: ALANINE AMINOTRANSFERASE 23 IU/L (21-72); ALBUMIN 2.8 g/dL (3.5-5.0); ALKALINE PHOSPHATASE 48 IU/L (38-126); ANION GAP 7 mEq/L (8-16); ASPARTATE AMINOTRANSFERASE 20 IU/L (17-59); BILIRUBIN,TOTAL 0.4 mg/dL (0.1-1.4); CALCIUM 8.7 mg/dL (8.5-10.4); CARBON DIOXIDE 24 mEq/l (22-31); CHLORIDE 105 mEq/L (97-110); CREATININE 0.6 mg/dL (0.7-1.3); GLOMERULAR FILTRATION RATE > 60; GLUCOSE 288 mg/dL (70-100); POTASSIUM 4.5 mEq/L (3.5-5.2); SODIUM 136 mEq/L (134-144); TOTAL PROTEIN 5.2 g/dL (6.3-8.2)
[2017-01-27 05:51] VITALS: RESP 16
[2017-01-27] MEDS: VANCOMYCIN 125 MG/2.5 ML UDL PO SCH ×4 (06:00→21:58)
[2017-01-27] MEDS: INSULIN LISPRO 100 UNIT/1 ML VIAL HIGH SC SCH ×3 (10:00→18:35)
[2017-01-27] MEDS: predniSONE 20 MG TAB PO SCH ×2 (10:02→22:00)
[2017-01-27] MEDS: BALSALAZIDE DISODIUM 750 MG CAP PO SCH ×3 (10:03→22:02)
[2017-01-27] MEDS: MULTIVITAMINS 1 EACH TAB PO SCH (10:05)
[2017-01-27] MEDS: metFORMIN HCL 500 MG TAB PO SCH ×2 (10:05→18:34)
[2017-01-27] MEDS: ASPIRIN EC 81 MG TAB PO SCH (10:05)
[2017-01-27] MEDS: VSL#3 1 EACH CAP PO SCH (10:05)
--- NOTE | 2017-01-27 10:24 | HOSPPROG ---
Hospitalist Progress Note Assessment/Plan: DIAGNOSES: Acute on chronic ulcerative colitis, symptomatic -for now continue steroid therapy, review with gastroenterology Acute C difficile colitis -continue oral vancomycin for now Diabetes mellitus type 2, uncontrolled in part due to the steroids he is receiving now -will add some long-acting insulin overnight and increase short-acting insulin doses with meals -I did spend an additional 15 minutes in discussion with the patient doing education regarding monitoring and care of diabetes and the impact of the steroid therapy Disposition: At this time plan on ongoing inpatient care until diarrhea has settled better , will discuss with Gastroenterology SUBJECTIVE: 5 loose stools overnight last night but the stools are slightly more formed Still mild abdominal discomfort, no bleeding No sweats or chills On reviewing his blood sugar issues he does mention that at home he has kept track of his morning fasting sugars which have been in the range of 140 but has never really monitored postprandial glucose OBJECTIVE Vitals reviewed: Stable withCardiac Monitor, my review: Exam: alert oriented skin warm dry color ok resps not labored lungs clear BSs heart regular abd soft nondistended nontender, bowel sounds present limbs warm, no edema iv site ok Laboratory data: WBC decreased but still elevated at 10,000 With sugars in the 250-340 range Objective: Vital Signs Temp Pulse Resp BP Pulse Ox 36.4 C 59 L 16 103/68 98 01/27/17 08:00 01/27/17 08:00 01/27/17 08:00 01/27/17 08:00 01/27/17 08:00 Laboratory Results 01/27/17 04:14 01/27/17 04:14 01/26/17 01/27/17 01/28/17 06:59 06:59 06:59 Intake Total 1700 1800 Output Total 7 Balance 1700 1793 - Time Spent With Patient Time Spent with Patient: greater than 35 minutes Time Spent with Patient: Greater than 35 minutes spent on this patients care, greater than 50% of time spent counseling, educating, and coordinating care regarding the above mentioned plan. ICD10 Worksheet Patient Problems: Problems Problem Status Onset Dehydration Acute Diarrhea Acute
--- NOTE | 2017-01-27 11:48 | SOAPPROG ---
SOAP Progress Note Assessment/Plan: Assessment: 1. C. Diff colitis; symptomatically improved on Vancomycin. Path results showed normal gastric and duodenal bx's with colonic bx's c/w combo of RAYNE and C. Diff(endoscopically more inflammation secondary to C. diff). 2. RAYNE; increased BM's and urgency over the night on BID Prednisone. Better this am but still too symptomatic to D/C today. Plan: 1. Continue oral meds, will increase Prednisone to 30 mg PO BID. Will need additional 24 hours or more in the hospital to assess response to meds. 2. Will set up F/U as outpatient with one of our [facility] and transition of 5 ASA med. 3. Diabetes care as outpatient with PCP (Tiburcio Forbes). Marcus Sequeira MD 01/27/17 11:45 Subjective: CC: Diarrhea with C. diff colitis and RAYNE. Interval HPI: 5 loose BM's last night, better this am. No abdominal cramping or blood in stool. Objective: Vital Signs Temp Pulse Resp BP Pulse Ox 36.4 C 59 L 16 103/68 98 01/27/17 08:00 01/27/17 08:00 01/27/17 08:00 01/27/17 08:00 01/27/17 08:00 Laboratory Results 01/27/17 04:14 01/27/17 04:14 01/26/17 01/27/17 01/28/17 05:59 05:59 05:59 Intake Total 1700 1800 Output Total 7 Balance 1700 1793 Physical Exam - Physical Exam General Appearance: WD/WN, alert, no apparent distress Respiratory: lungs clear, normal breath sounds Cardiac/Chest: regular rate, rhythm Abdomen: normal bowel sounds, non-tender, soft Skin: normal color, warm/dry Neuro/Psych: alert, normal mood/affect, oriented x 3 ICD10 Worksheet Patient Problems: Problems Problem Status Onset Dehydration Acute Diarrhea Acute
[2017-01-27] MEDS: INSULIN LISPRO 100 UNIT/ML SC SCH ×2 (14:03→18:35)
[2017-01-27] MEDS ORDERED: INSULIN GLARGINE 100 UNITS/ML SYRINGE SC SCH (21:00)
[2017-01-27] MEDS: ATORVASTATIN CALCIUM 20 MG TAB PO SCH (22:01)
[2017-01-28] MEDS: VANCOMYCIN 125 MG/2.5 ML UDL PO SCH ×2 (05:56→12:37)
[2017-01-28 08:06] VITALS: BP 98/68; PULSE 57; TEMP 97.9; O2SAT 93
[2017-01-28] MEDS: predniSONE 20 MG TAB PO SCH (08:34)
[2017-01-28] MEDS: metFORMIN HCL 500 MG TAB PO SCH (08:34)
[2017-01-28] MEDS: BALSALAZIDE DISODIUM 750 MG CAP PO SCH (08:34)
[2017-01-28] MEDS: MULTIVITAMINS 1 EACH TAB PO SCH (08:34)
[2017-01-28] MEDS: INSULIN LISPRO 100 UNIT/ML SC SCH ×2 (08:35→12:37)
[2017-01-28] MEDS: INSULIN LISPRO 100 UNIT/1 ML VIAL HIGH SC SCH ×2 (08:35→12:37)
[2017-01-28] MEDS: ASPIRIN EC 81 MG TAB PO SCH (08:35)
[2017-01-28] MEDS: VSL#3 1 EACH CAP PO SCH (08:35)
--- NOTE | 2017-01-28 12:14 | SOAPPROG ---
SOAP Progress Note Assessment/Plan: Assessment: 1. C. Diff colitis; symptomatically improved on Vancomycin. 2. RAYNE; symptomatically improved and ready for D/C. Plan: 1. Continue oral Prednisone. 2. F/U office visit with Dr Maddox in [place] on 02/07 at 2PM with transition of 5 ASA med. 3. Diabetes care as outpatient with PCP (Tiburcio Forbes). Marcus Sequeira MD 01/28/17 12:10 Subjective: CC: RAYNE/C. Diff colitis. Interval HPI: Feeling well with only 2 formed BM today. Ready for discharge. Objective: Vital Signs Temp Pulse Resp BP Pulse Ox 36.6 C 57 L 16 98/68 L 93 01/28/17 08:00 01/28/17 08:00 01/28/17 08:00 01/28/17 08:00 01/28/17 08:00 Laboratory Results 01/27/17 04:14 01/27/17 04:14 01/27/17 01/28/17 01/29/17 05:59 05:59 05:59 Intake Total 1800 2800 Output Total 7 Balance 1793 2800 Physical Exam - Physical Exam General Appearance: WD/WN, alert, no apparent distress Respiratory: lungs clear, normal breath sounds Abdomen: normal bowel sounds, non-tender, soft Skin: normal color, warm/dry Neuro/Psych: alert, normal mood/affect, oriented x 3 ICD10 Worksheet Patient Problems: Problems Problem Status Onset Dehydration Acute Diarrhea Acute
--- NOTE | 2017-01-28 21:12 | PDDCSUM ---
Discharge Summary Discharge Summary: DISCHARGE DIAGNOSES: -ACUTE C DIFF COLITIS POA -ACUTE ON CHRONIC ULCERATIVE COLITIS -TYPE 2 DM, UNCONTROLLED CONSULTATION: DR ROBBIN ELIZABETH PROCEDURES: COLONOSCOPY WITH BIOPSIES (SHOWED TYPICAL UC CHANGES AND ALSO CHANGES C/W D DIFF ) HOSPITAL COURSE: The patient has a hx of UC and also hx of multiple recent courses of antibiotic for dental infections. He comes in with abdominal pain and bloody diarrhea. Lab work and endoscopic findings and bx showed evidence of both acute UC and C Diff infection. He was treated with oral steroid and oral vancomycin, and had a very good response. At this time he has no pain, no fever, benign exam, resolution of bleeding and diarrhea. He is felt stable for DC to home. He will go on 30 bid prednisone and 6 more days of qid po vancomycin, and follow up in GI clinic to have ongoing management, (appt 1-2 weeks). In addition he has type 2 DM. At home he had fasting sugars in 140s for most part but did not check other numbers. Here he had fairly high glucose on admission that was aggravated by steroids, and he had HgA1c of 8.3. He was started on insulin in addition to his po med. He is advised on low carb, no sugars diet, and to check qid sugars until better control achieved. This will get better as steroids decrease but he will need close f/u Has a primary care appt in 4 days. Med changes: addition po vancomycin 250 qid x 6 days after dc addition lantus insulin 15 u qhs
== END 2017-01-28 13:52 | disposition home or self-care (01) | DRG 372 ==
LOC: F1N 18:29
PROVIDERS: ADMIT Internal Medicine; ATTEND Internal Medicine
PROC: 0DB98ZX Excision of Duodenum, Via Natural or Artificial Opening Endoscopic, Diagnostic (ICD-10-PCS; principal; 2017-01-22 10:15)
PROC: 0DB68ZX Excision of Stomach, Via Natural or Artificial Opening Endoscopic, Diagnostic (ICD-10-PCS; principal; 2017-01-22 10:15)
PROC: 0DBN8ZX Excision of Sigmoid Colon, Via Natural or Artificial Opening Endoscopic, Diagnostic (ICD-10-PCS; principal; 2017-01-22 10:15)
DX: A04.7 Enterocolitis due to Clostridium difficile (principal); K51.90 Ulcerative colitis, unspecified, without complications; R63.4 Abnormal weight loss; K44.9 Diaphragmatic hernia without obstruction or gangrene; K29.70 Gastritis, unspecified, without bleeding; E11.65 Type 2 diabetes mellitus with hyperglycemia; E78.5 Hyperlipidemia, unspecified; Z87.891 Personal history of nicotine dependence
CPT/HCPCS: 82947-QW; J1815; J2250; J2704; Q9967